=== PATIENT | female | born 1960 | race Caucasian/White ===

== ENCOUNTER 2023-02-28 21:44 | Emergency (ER) | payer BC ==
[2023-02-28] MEDS ORDERED: Ipratropium/Albuterol 3 ML NEB ONE (22:31)
[2023-02-28] MEDS ORDERED: predniSONE 20 MG TAB ONE (22:32)
[2023-02-28 23:13] LABS: SARS-CoV-2 NAA Rapid Test Not Detected (NotDetected)
[2023-02-28 23:20] LABS: #Basophils 0.1 10x3/uL (0.0-0.2); #Eosinphils 0.1 10x3/uL (0.0-0.5); #Monocytes 0.7 10x3/uL (0.0-1.1); %Basophils 0.6 % (0.0-2.0); %Eosinophils 0.3 % (0.0-6.0); %Lymphocytes 7.1 % (18.0-47.0); %Monocytes 4.1 % (0.0-10.0); %Neutrophils 87.3 % (40.0-75.0); Hemoglobin 12.2 g/dL (12.0-15.5); Mean Corpuscular HGB CONC 32.6 g/dL (32.0-36.0); Mean Corpuscular Hemoglobin 29.2 pg (27.0-33.0); Mean Corpuscular Volume 89.5 fl (81.6-98.3); Mean Platelet Volume 10.9 fl (7.4-10.4); Platelet Count 302 10x3/uL (150-450); RBC Distribution Width 13.1 % (11.5-14.5); Red Blood Cell (RBC) Count 4.18 10x6/uL (3.90-5.03); White Blood Cell (WBC) Count 17.2 10x3/uL (3.5-10.5)
[2023-02-28 23:23] LABS: ALT (SGPT) 14 U/L (8-55); AST (SGOT) 21 U/L (5-34); Albumin 4.5 g/dL (3.4-4.8); Alkaline Phosphatase 120 U/L (40-110); Anion Gap 17 mmol/L (10-20); BUN (Urea Nitrogen) 13 mg/dL (9.8-20.1); Bilirubin, Total 0.4 mg/dL (0.2-1.2); Calc. Creatinine Clearance 0 mL/min (70-130); Calcium 9.4 mg/dL (7.8-10.44); Carbon Dioxide 24 mmol/L (23-31); Chloride 97 mmol/L (98-107); Estimated GFR 75; Globulin 4.1 g/dL (2.4-3.5); Glucose 126 mg/dL (80-115); Protein, Total 8.6 g/dL (5.8-8.1); Sodium 134 mmol/L (136-145)
== END 2023-03-01 02:59 | disposition short-term general hospital (02) ==
LOC: CSHERS 21:44
DX: R09.02 Hypoxemia (principal); R06.2 Wheezing; D72.829 Elevated white blood cell count, unspecified
CPT/HCPCS: 36415; 71045; 80053; 83735; 83880; 84484; 85025; 93005; 94644; 94645; 94760; 96374; J7512; J7611; J7620; U0002